=== PATIENT | female | born 1950 | race Caucasian/White ===

== ENCOUNTER 2020-03-26 16:44 | Inpatient (IN) ==
[2020-03-27] MEDS ORDERED: *HR* OxyCODONE Immed Rel 5 MG TABLET PO PRN (12:14)
[2020-03-27] MEDS ORDERED: Ondansetron ODT 4 MG TAB.RAPDIS PO PRN (12:14)
[2020-03-27] MEDS: Ibuprofen 800 MG TABLET PO PRN ×2 (13:41→22:32)
[2020-03-28 05:19] LABS: Basophils % 0.3 %; Eosinophils # 0.2 K/mcL (0.0-0.6); Eosinophils % 2.3 %; Hematocrit 15.9 % (35.3-44.9); Immature Granulocytes % 3.5 % (0-4); Lymphocytes # 1.2 K/mcL (0.6-4.6); Lymphocytes % 15.3 %; Mean Corpuscular HGB Conc 28.9 g/dL (31.6-35.5); Mean Corpuscular Hemoglobin 26.1 pg (28.0-33.3); Mean Corpuscular Volume 90.3 fL (83.0-100.0); Mean Platelet Volume 11.6 fL (9.4-12.4); Monocytes # 0.5 K/mcL (0.0-1.3); Monocytes % 6.1 %; Neutrophils # 5.8 K/mcL (1.6-8.9); Nucleated Red Blood Cells 0.4 /100 WBC (0); Platelet Count 393 K/mcL (140-400); Red Blood Count 1.76 M/mcL (3.82-4.97); Red Cell Distribution Width 23.9 % (11.5-14.5); Segmented Neutrophils % 72.5 %; White Blood Count 7.9 K/mcL (4.3-11.1)
[2020-03-28 05:29] LABS: Hemoglobin 4.6 g/dL (11.5-15.4)
[2020-03-28 05:38] LABS: Anisocytosis 2+ (Not Present); Hypochromasia Present (Not Present); Platelet Estimate Normal (Normal)
[2020-03-28 05:39] LABS: Alanine Aminotransferase 44 Units/L (7-52); Albumin 2.6 g/dL (3.5-5.7); Albumin/Globulin Ratio 1.2 (1.1-2.2); Alkaline Phosphatase 201 Units/L (34-104); Aspartate Amino Transferase 23 Units/L (13-39); BUN/Creatinine Ratio 14 (6-26); Bilirubin,Total 0.2 mg/dL (0.3-1.0); Blood Urea Nitrogen 10 mg/dL (8-23); Calcium 8.1 mg/dL (8.6-10.3); Carbon Dioxide 25 mEq/L (23-29); Chloride 110 mEq/L (98-107); Globulin 2.2 g/dL (2.4-3.5); Glucose 106 mg/dL (70-105); Microcytosis Present (Not Present); Osmolality,Calculated 295 (280-300); Potassium 3.7 mEq/L (3.5-5.1); Sodium 143 mEq/L (136-145); Total Protein 4.8 g/dL (6.4-8.9); eGFR For African Americans > 60 (> 60); eGFR For Non-African Americans > 60 (> 60)
[2020-03-28 06:02] LABS: Hematocrit 17.2 % (35.3-44.9); Mean Corpuscular HGB Conc 30.2 g/dL (31.6-35.5); Mean Corpuscular Hemoglobin 27.2 pg (28.0-33.3); Mean Corpuscular Volume 90.1 fL (83.0-100.0); Mean Platelet Volume 11.1 fL (9.4-12.4); Platelet Count 411 K/mcL (140-400); Red Blood Count 1.91 M/mcL (3.82-4.97); Red Cell Distribution Width 23.9 % (11.5-14.5); White Blood Count 8.1 K/mcL (4.3-11.1)
[2020-03-28 06:05] LABS: Hemoglobin 5.2 g/dL (11.5-15.4)
[2020-03-28] MEDS ORDERED: Isovue-370 500 ML BOTTLE IVP ONE (06:18)
[2020-03-28] MEDS: Cyanocobalamin (B-12) 1,000 MCG TABLET PO SCH (10:19)
[2020-03-28 13:24] LABS: % Iron Saturation 33 % (15-50); Iron 73 mcg/dL (50-170); Transferrin 156 mg/dL (203-362)
[2020-03-28 16:19] LABS: Hematocrit 26.9 % (35.3-44.9)
[2020-03-28 16:24] LABS: Hemoglobin 8.3 g/dL (11.5-15.4)
[2020-03-28] MEDS: Iron Sucrose Complex 200 MG in 0.9 % Sodium Chloride 100 ML IVPB SCH (17:12)
[2020-03-29 04:57] LABS: Hematocrit 25.8 % (35.3-44.9); Hemoglobin 8.2 g/dL (11.5-15.4); Mean Corpuscular HGB Conc 31.8 g/dL (31.6-35.5); Mean Corpuscular Hemoglobin 27.7 pg (28.0-33.3); Mean Corpuscular Volume 87.2 fL (83.0-100.0); Mean Platelet Volume 11.5 fL (9.4-12.4); Platelet Count 466 K/mcL (140-400); Red Blood Count 2.96 M/mcL (3.82-4.97); Red Cell Distribution Width 23.3 % (11.5-14.5); White Blood Count 11.5 K/mcL (4.3-11.1)
[2020-03-29] MEDS: Cyanocobalamin (B-12) 1,000 MCG TABLET PO SCH (09:05)
[2020-03-29] MEDS: Iron Sucrose Complex 200 MG in 0.9 % Sodium Chloride 100 ML IVPB SCH (09:08)
[2020-03-29 14:11] LABS: Folate 8.1 ng/mL (3.0-16.0)
[2020-03-30 05:18] LABS: Basophils % 0.2 %; Eosinophils # 0.1 K/mcL (0.0-0.6); Eosinophils % 1.3 %; Hematocrit 25.5 % (35.3-44.9); Immature Granulocytes % 1.5 % (0-4); Lymphocytes # 1.1 K/mcL (0.6-4.6); Lymphocytes % 11.5 %; Mean Corpuscular HGB Conc 31.4 g/dL (31.6-35.5); Mean Corpuscular Hemoglobin 28.2 pg (28.0-33.3); Mean Corpuscular Volume 89.8 fL (83.0-100.0); Mean Platelet Volume 11.1 fL (9.4-12.4); Monocytes # 0.6 K/mcL (0.0-1.3); Monocytes % 6.5 %; Neutrophils # 7.2 K/mcL (1.6-8.9); Nucleated Red Blood Cells 0.4 /100 WBC (0); Platelet Count 448 K/mcL (140-400); Red Blood Count 2.84 M/mcL (3.82-4.97); Red Cell Distribution Width 24.2 % (11.5-14.5); White Blood Count 9.1 K/mcL (4.3-11.1)
[2020-03-30 05:27] LABS: Anisocytosis 2+ (Not Present)
[2020-03-30 05:28] LABS: Microcytosis Present (Not Present); Platelet Estimate Normal (Normal)
[2020-03-30] MEDS: Cyanocobalamin (B-12) 1,000 MCG TABLET PO SCH (08:58)
[2020-03-30] MEDS: Iron Sucrose Complex 200 MG in 0.9 % Sodium Chloride 100 ML IVPB SCH (08:59)
[2020-03-31] MEDS: Cyanocobalamin (B-12) 1,000 MCG TABLET PO SCH (07:58)
[2020-04-01] MEDS: Cyanocobalamin (B-12) 1,000 MCG TABLET PO SCH (12:05)
[2020-04-02 05:33] LABS: Hematocrit 29.8 % (35.3-44.9); Hemoglobin 8.9 g/dL (11.5-15.4); Mean Corpuscular HGB Conc 29.9 g/dL (31.6-35.5); Mean Corpuscular Hemoglobin 28.4 pg (28.0-33.3); Mean Corpuscular Volume 95.2 fL (83.0-100.0); Mean Platelet Volume 11.3 fL (9.4-12.4); Platelet Count 441 K/mcL (140-400); Red Blood Count 3.13 M/mcL (3.82-4.97); Red Cell Distribution Width 26.3 % (11.5-14.5); White Blood Count 8.4 K/mcL (4.3-11.1)
[2020-04-02 07:40] VITALS: BP 137/74
[2020-04-02] MEDS: Cyanocobalamin (B-12) 1,000 MCG TABLET PO SCH (08:08)
== END 2020-04-02 14:35 | disposition home or self-care (01) | DRG 949 ==
LOC: INPGRE 03-27 11:56
PROVIDERS: ADMIT Family Medicine; ATTEND Family Medicine